=== PATIENT | male | born 1995 | race Caucasian/White ===

== ENCOUNTER 2019-05-21 15:45 | Emergency (ER) | payer MEDICAID, SELFPAY ==
--- NOTE | 2019-05-21 16:14 | EDPHYS ---
Physician Documentation [facility] Name: Urban Echeverria Jr Age: 24 yrs Sex: Male : 1995 Arrival Date: 05/21/2019 Time: 15:46 Bed Treatment Private MD: ED Physician Andrea Alexandre HPI: 05/21 16:11 This 24 yrs old Male presents to ER via Unassigned with complaints of Needs kb Work Note. 16:11 The patient or guardian reports cough, that is intermittent, described as moderate, kb with no sputum. Onset: The symptoms/episode began/occurred 6 day(s) ago. Severity of symptoms: At their worst the symptoms were moderate, in the emergency department the symptoms are unchanged. Modifying factors: The symptoms are alleviated by nothing, the symptoms are aggravated by nothing. Associated signs and symptoms: Pertinent positives: fever, rhinorrhea. The patient has not experienced similar symptoms in the past. The patient has not recently seen a physician. Pt reports cough, congestion and fever over the weekend. Was sent home from work on Saturday for symptoms. States he is feeling better, but needs a note to return to work. Historical: - Allergies: 16:17 No Known Allergies; iw - Home Meds: 16:17 None [Active]; iw - PMHx: 16:17 None; iw - PSHx: 16:17 None; iw - Immunization history:: Adult Immunizations not up to date. - Social history:: Smoking status: Patient uses tobacco products, smokes one-half pack cigarettes per day. - Ebola Screening: : Patient negative for fever greater than or equal to 101.5 degrees Fahrenheit, and additional compatible Ebola Virus Disease symptoms Patient denies exposure to infectious person Patient denies travel to an Ebola-affected area in the 21 days before illness onset No symptoms or risks identified at this time. ROS: 16:11 Neck: Negative for injury, pain, and swelling, Cardiovascular: Negative for chest pain, kb palpitations, and edema, Abdomen/GI: Negative for abdominal pain, nausea, vomiting, diarrhea, and constipation, Back: Negative for injury and pain, MS/Extremity: Negative for injury and deformity, Skin: Negative for injury, rash, and discoloration, Neuro: Negative for headache, weakness, numbness, tingling, and seizure. 16:11 Constitutional: Positive for fever. 16:11 ENT: Positive for rhinorrhea, sinus congestion. 16:11 Respiratory: Positive for cough, Negative for dyspnea on exertion, hemoptysis, orthopnea, pleurisy, shortness of breath, sputum production, wheezing. Exam: 16:11 Constitutional: This is a well developed, well nourished patient who is awake, alert, kb and in no acute distress. Head/Face: Normocephalic, atraumatic. ENT: Nares patent. No nasal discharge, no septal abnormalities noted. Tympanic membranes are normal and external auditory canals are clear. Oropharynx with no redness, swelling, or masses, exudates, or evidence of obstruction, uvula midline. Mucous membranes moist. Neck: Trachea midline, no thyromegaly or masses palpated, and no cervical lymphadenopathy. Supple, full range of motion without nuchal rigidity, or vertebral point tenderness. No Meningismus. Chest/axilla: Normal chest wall appearance and motion. Nontender with no deformity. No lesions are appreciated. Cardiovascular: Regular rate and rhythm with a normal S1 and S2. No gallops, murmurs, or rubs. Normal PMI, no JVD. No pulse deficits. Respiratory: Lungs have equal breath sounds bilaterally, clear to auscultation and percussion. No rales, rhonchi or wheezes noted. No increased work of breathing, no retractions or nasal flaring. Abdomen/GI: Soft, non-tender, with normal bowel sounds. No distension or tympany. No guarding or rebound. No evidence of tenderness throughout. Skin: Warm, dry with normal turgor. Normal color with no rashes, no lesions, and no evidence of cellulitis. MS/ Extremity: Pulses equal, no cyanosis. Neurovascular intact. Full, normal range of motion. Neuro: Awake and alert, GCS 15, oriented to person, place, time, and situation. Cranial nerves II-XII grossly intact. Motor strength 5/5 in all extremities. Sensory grossly intact. Cerebellar exam normal. Normal gait. Vital Signs: 16:17 BP 132 / 78; Pulse 82; Resp 16; Temp 98.3; Pulse Ox 98% on R/A; Weight 74.84 kg; Height iw 5 ft. 7 in. (170.18 cm); 16:17 Body Mass Index 25.84 (74.84 kg, 170.18 cm) MDM: 16:07 Patient medically screened. kb 16:10 Data reviewed: vital signs, nurses notes. Data interpreted: Pulse oximetry: on room air kb is 100 %. Interpretation: normal. Counseling: I had a detailed discussion with the patient and/or guardian regarding: the historical points, exam findings, and any diagnostic results supporting the discharge/admit diagnosis, the need for outpatient follow up, a family practitioner, to return to the emergency department if symptoms worsen or persist or if there are any questions or concerns that arise at home. Administered Medications: No medications were administered Disposition: 19:06 Co-signature as Attending Physician, Andrea Alexandre MD. rn Disposition: 05/21/19 16:13 Discharged to Home. Impression: Acute upper respiratory infection, unspecified. - Condition is Stable. - Discharge Instructions: Upper Respiratory Infection, Adult, [id number], Viral Respiratory Infection, [id number]. - Work release form, Medication Reconciliation Form, Thank You Letter, Antibiotic Education, Prescription Opioid Use form. - Follow up: Emergency Department; When: As needed; Reason: Worsening of condition. Follow up: Private Physician; When: 2 - 3 days; Reason: Recheck today's complaints, Continuance of care, Re-evaluation by your physician. Signatures: Nicolasa Sanford, RAY-C TEST CELL TECHNICIAN-Zulma Robin, JOSE L RN Andrea Gómez MD MD welder journeyman: (The following items were deleted from the chart) 16:27 16:13 05/21/2019 16:13 Discharged to Home. Impression: Acute upper respiratory iw infection, unspecified. Condition is Stable. Forms are Medication Reconciliation Form, Thank You Letter, Antibiotic Education, Prescription Opioid Use. Follow up: Emergency Department; When: As needed; Reason: Worsening of condition. Follow up: Private Physician; When: 2 - 3 days; Reason: Recheck today's complaints, Continuance of care, Re-evaluation by your physician. kb
--- NOTE | 2019-05-21 16:28 | ER ---
Nurse's Notes [facility] Name: Urban Echeverria Jr Age: 24 yrs Sex: Male : 1995 Arrival Date: 05/21/2019 Time: 15:46 Bed Treatment Private MD: Diagnosis: Acute upper respiratory infection, unspecified Presentation: 05/21 16:16 Presenting complaint: Patient states: was sick over weekend, needs a work note to go iw back to work now, was having cough, sneezing, fever , alll s/s resolved. Transition of care: patient was not received from another setting of care. Onset of symptoms was May 21, 2019. Risk Assessment: Do you want to hurt yourself or someone else? Patient reports no desire to harm self or others. Initial Sepsis Screen: Does the patient meet any 2 criteria? No. Patient's initial sepsis screen is negative. Does the patient have a suspected source of infection? No. Patient's initial sepsis screen is negative. Care prior to arrival: None. 16:16 Method Of Arrival: Ambulatory iw 16:16 Acuity: MARY 5 iw Triage Assessment: 16:20 General: Appears in no apparent distress. Behavior is calm, cooperative. iw Historical: - Allergies: 16:17 No Known Allergies; iw - Home Meds: 16:17 None [Active]; iw - PMHx: 16:17 None; iw - PSHx: 16:17 None; iw - Immunization history:: Adult Immunizations not up to date. - Social history:: Smoking status: Patient uses tobacco products, smokes one-half pack cigarettes per day. - Ebola Screening: : Patient negative for fever greater than or equal to 101.5 degrees Fahrenheit, and additional compatible Ebola Virus Disease symptoms Patient denies exposure to infectious person Patient denies travel to an Ebola-affected area in the 21 days before illness onset No symptoms or risks identified at this time. Screenin:20 Abuse screen: Denies threats or abuse. Denies injuries from another. Nutritional iw screening: No deficits noted. Tuberculosis screening: No symptoms or risk factors identified. Fall Risk None identified. Assessment: 16:20 General: Appears in no apparent distress. Behavior is calm, cooperative. Pain: Denies iw pain. Neuro: Level of Consciousness is awake, alert, obeys commands, Oriented to person, place, time, situation. Respiratory: Respiratory effort is even, unlabored, Respiratory pattern is regular. GI: Abdomen is flat. Derm: Skin is intact, is healthy with good turgor. Musculoskeletal: Range of motion: intact in all extremities. Vital Signs: 16:17 BP 132 / 78; Pulse 82; Resp 16; Temp 98.3; Pulse Ox 98% on R/A; Weight 74.84 kg; Height iw 5 ft. 7 in. (170.18 cm); 16:17 Body Mass Index 25.84 (74.84 kg, 170.18 cm) iw ED Course: 15:46 Patient arrived in ED. rg4 15:50 Nicolasa Sanford FNP-C is [facility]. kb 15:50 Andrea Alexandre MD is Attending Physician. kb 16:07 Zulma Hawkins, RN is Primary Nurse. iw 16:17 Triage completed. iw 16:17 Arm band placed on. iw 16:17 Patient has correct armband on for positive identification. iw 16:26 No provider procedures requiring assistance completed. Patient did not have IV access iw during this emergency room visit. Administered Medications: No medications were administered Outcome: 16:13 Discharge ordered by MD. kb 16:26 Discharged to home ambulatory. iw 16:26 Condition: good 16:26 Discharge instructions given to patient, Instructed on discharge instructions, follow up and referral plans. Demonstrated understanding of instructions, follow-up care. 16:27 Patient left the ED. iw Signatures: Nicolasa Sanford FNP-C FNP-Ckb Williams, Irene RN RN iw Erin Sheriff rg4
[2019-05-21 17:26] VITALS: BP 132/78; TEMP 98.3; O2SAT 98
== END 2019-05-21 16:27 | disposition home or self-care (01) ==
LOC: ER 15:45
DX: J06.9 Acute upper respiratory infection, unspecified (principal); F17.210 Nicotine dependence, cigarettes, uncomplicated
CPT/HCPCS: 99281

== ENCOUNTER 2019-12-06 04:34 | Emergency (ER) | payer SELFPAY ==
[2019-12-06] MEDS ORDERED: LIDOCAINE 1% MPF 30 ML VIAL ONE (04:54)
[2019-12-06] MEDS ORDERED: TETANUS & DIPHTHERIA TOX,ADULT 0.5 ML VIAL ONE (05:15)
[2019-12-06] MEDS ORDERED: CEFAZOLIN SODIUM 1 GM/VIAL ONE (05:20)
[2019-12-06] MEDS ORDERED: WATER FOR INJ,STERILE 10 ML ONE (05:21)
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
[2019-12-06 07:57] VITALS: TEMP 97.6
[2019-12-06 08:06] VITALS: BP 128/78; O2SAT 99
== END 2019-12-06 07:50 | disposition home or self-care (01) ==
LOC: ER 04:34
PROC: 0JQK0ZZ Repair Left Hand Subcutaneous Tissue and Fascia, Open Approach (ICD-10-PCS; principal; 2019-12-06)
DX: S61.211A Laceration without foreign body of left index finger without damage to nail, initial encounter (principal); S61.215A Laceration without foreign body of left ring finger without damage to nail, initial encounter; W26.0XXA Contact with knife, initial encounter; Y93.9 Activity, unspecified; Y92.009 Unspecified place in unspecified non-institutional (private) residence as the place of occurrence of the external cause; Z23 Encounter for immunization; F17.210 Nicotine dependence, cigarettes, uncomplicated
CPT/HCPCS: 90471; 90714; 96372; 99284; J0690